=== PATIENT | female | born 2000 | race Caucasian/White ===

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

== ENCOUNTER 2020-12-10 10:07 | Emergency (ER) | payer MEDICAID ==
[~2020-12-10] VITALS: Ht 167.6 cm; Wt 72.9 kg
[~2020-12-10 10:07] MED LIST: IBUP-1222 PO; OXYC1TAB14 PO; PREN1TAB60 PO; RANI-467 PO
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
--- NOTE | 2020-12-10 10:40 | NUR ---
URINE COLLECTED AND WALKED TO LAB.
--- NOTE | 2020-12-10 10:50 | NUR ---
CALLED [facility] ON [facility]. THEY WILL FAX A LIST OF MEDICATIONS. PT IS UNSURE OF DOSAGE OF ZYPREXA.
[2020-12-10 10:54] LABS: HCG UR SG 1.011 (1.003-1.030); MICROSCOPIC NOT IND
[2020-12-10 11:19] LABS: AMPHETAMINE SCREEN, URINE Negative (Negative); BARBITURATE SCREEN, URINE Negative (Negative); BENZODIAZEPINE SCREEN, URINE Negative (Negative); CANNABINOID SCREEN, URINE Positive (Negative); COCAINE SCREEN, URINE Negative (Negative); METHADONE SCREEN, URINE Negative (Negative); OPIATE SCREEN, URINE Negative (Negative)
[2020-12-10] MEDS ORDERED: OLANZAPINE 10 MG TABLET ONE (12:43)
[2020-12-10 12:54] LABS: BASOPHILS % (AUTO) 1 % (0-1); EOSINOPHILS % (AUTO) 4 % (1-7); LYMPHOCYTES % (AUTO) 27 % (22-44); MEAN CORPUSCULAR HEMOGLOBIN 29.6 pg (27.0-34.8); MEAN CORPUSCULAR HGB CONC 33.4 g/dL (32.4-35.8); MEAN PLATELET VOLUME 8.4 fL (7.4-10.4); MONOCYTES % (AUTO) 5 % (2-9); NEUTROPHILS % (AUTO) 63 % (42-75); PLATELET COUNT 218 x10^3/uL (130-400); RED BLOOD COUNT 4.63 x10^6/uL (3.82-5.3)
[2020-12-10 13:00] LABS: MD NO
[2020-12-10] MEDS ORDERED: OLANZAPINE ODT 10MG PO ONE (13:00)
[2020-12-10 13:02] LABS: ALBUMIN 3.8 g/dL (3.4-5.0); ANION GAP 6 mmol/L (5-15); CALCIUM 8.8 mg/dL (8.5-10.1); CHLORIDE 111 mmol/L (98-107); CREATININE 0.89 mg/dL (0.55-1.02)
[2020-12-10 13:12] LABS: FREE T4 (FREE THYROXINE) 1.04 ng/dL (0.76-1.46)
--- NOTE | 2020-12-10 13:29 | NUR ---
FAXED ALL APPROPRIATE DOCUMENTAION TO [facility], AND [facility]
--- NOTE | 2020-12-10 13:48 | NUR ---
[facility] CALLED BACK TO ACCEPT PT.
[2020-12-10 14:42] VITALS: BP 117/80
--- NOTE | 2020-12-10 14:43 | NUR ---
BREAK RN- VS UPDATED AND WNL. PT RESTING WITH NO COMPLAINTS. WATER PROVIDED. PT REMAINS UNDER CONSTANT SUPERVISION OF SITTER AND REMAINS SAFE.
--- NOTE | 2020-12-10 15:12 | NUR ---
AMBULANCE CREW BEDSIDE TO TAKE PT TO [facility] FOR FURTHER PSYCH EVALUATION. REPORT GIVEN TO AMBULANCE CREW.
== END 2020-12-10 15:36 ==
LOC: ED 10:47
DX: F12.159 Cannabis abuse with psychotic disorder, unspecified (principal); F31.9 Bipolar disorder, unspecified; R44.3 Hallucinations, unspecified
CPT/HCPCS: 36415; 80048; 80307; 81003; 81025; 82040; 84439; 84443; 85025; 99285

== ENCOUNTER 2021-01-27 13:31 | Emergency (ER) | payer MEDICAID ==
[~2021-01-27] VITALS: Ht 170.2 cm; Wt 75.5 kg
[2021-01-27 13:33] VITALS: BP 108/85
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
[2021-01-27] MEDS ORDERED: NEOSPORIN OINT. PKT 1 PACKET ONE (14:32)
== END 2021-01-27 14:45 | disposition home or self-care (01) ==
LOC: ED 14:40
DX: S30.811A Abrasion of abdominal wall, initial encounter (principal); S90.811A Abrasion, right foot, initial encounter; S00.81XA Abrasion of other part of head, initial encounter; X58.XXXA Exposure to other specified factors, initial encounter; Y93.89 Activity, other specified; Y92.89 Other specified places as the place of occurrence of the external cause; Y99.8 Other external cause status
CPT/HCPCS: 99282